=== PATIENT | male | born 1995 | race Two or more races ===

== ENCOUNTER 2021-07-26 22:12 | Emergency (ER) | payer OTHER ==
[~2021-07-26] VITALS: Ht 185.4 cm; Wt 81.8 kg
[2021-07-26] MEDS ORDERED: NS 1,000 ML IV ONE (22:35)
[2021-07-26 23:07] LABS: VENOUS BASE EXCESS -0.3 (-2.0-2.0); VENOUS HCO3 25.6 MEQ/L (23.0-27.0); VENOUS O2 SATURATION 74.8 % (60.0-80.0); VENOUS PARTIAL PRESSURE CO2 46.2 mmHg (38.0-50.0); VENOUS PARTIAL PRESSURE O2 41.2 mmHg (30.0-50.0); VENOUS PH 7.361 UNITS (7.330-7.430); VENOUS STANDARD HCO3 23.7 MEQ/L
[2021-07-26 23:08] LABS: BASO % 0.5 % (0.0-1.0); EOS # 0.2 10^3/uL (0.0-0.5); EOS % 2.6 % (0.0-3.0); HEMATOCRIT 41.5 % (42.0-52.0); LYMPH # 2.1 10^3/uL (1.5-5.0); LYMPH % 26.1 % (24.0-44.0); MEAN CORPUSCULAR HEMOGLOBIN 28.5 pg (27.0-33.0); MEAN CORPUSCULAR HGB CONC 33.7 g/dl (32.0-36.5); MEAN CORPUSCULAR VOLUME 84.3 fl (80.0-96.0); MONO # 0.5 10^3/uL (0.0-0.8); MONO % 6.7 % (2.0-8.0); NEUTROPHILS # 5.2 10^3/uL (1.5-8.5); NEUTROPHILS % 63.9 % (36.0-66.0); PLATELET COUNT, AUTOMATED 274 10^3/uL (150-450); RED BLOOD COUNT 4.92 10^6/uL (4.30-6.10); WHITE BLOOD COUNT 8.1 10^3/uL (4.0-10.0)
[2021-07-26 23:27] LABS: HEMOGLOBIN A1c 12.8 %
--- NOTE | 2021-07-26 23:27 | REPVR ---
PROCEDURE INFORMATION: Exam: CT Head Without Contrast Exam date and time: 07/26/2021 10:35 PM Age: 26 years old Clinical indication: Dizziness; Additional info: Syncope TECHNIQUE: Imaging protocol: Computed tomography of the head without contrast. Radiation optimization: All CT scans at this facility use at least one of these dose optimization techniques: automated exposure control; mA and/or kV adjustment per patient size (includes targeted exams where dose is matched to clinical indication); or iterative reconstruction. COMPARISON: No relevant prior studies available. FINDINGS: Brain: Normal. No hemorrhage. Unremarkable white matter. No mass effect. Cerebral ventricles: No ventriculomegaly. Paranasal sinuses: Moderate ethmoid sinus disease. Mastoid air cells: Visualized mastoid air cells are well aerated. Bones/joints: Unremarkable. No acute fracture. Soft tissues: Unremarkable. IMPRESSION: No acute intracranial abnormality. Electronically signed by: Jay Osborne On 07/26/2021 23:26:35 PM
[2021-07-26 23:32] LABS: OSMOLALITY SERUM 296 MOSM/KG (275-295)
[2021-07-26 23:49] LABS: ACETONE/KETONE 1.81 MG/DL (<2.81); ALBUMIN 3.6 GM/DL (3.2-5.2); ALT/SGPT 20 U/L (12-78); BILIRUBIN,DIRECT < 0.1 MG/DL (0.0-0.2); BILIRUBIN,TOTAL 0.3 MG/DL (0.2-1.0); TOTAL PROTEIN 6.6 GM/DL (6.4-8.2)
[2021-07-27 00:22] LABS: BLOOD UREA NITROGEN 23 MG/DL (7-18); CALCIUM LEVEL 8.9 MG/DL (8.5-10.1); CARBON DIOXIDE LEVEL 29 MEQ/L (21-32); CHLORIDE LEVEL 105 MEQ/L (98-107); CREATININE FOR GFR 1.07 MG/DL (0.70-1.30); GLOMERULAR FILTRATION RATE > 60.0 (>60); GLUCOSE, FASTING 175 MG/DL (70-100); POTASSIUM SERUM 3.9 MEQ/L (3.5-5.1); SODIUM LEVEL 139 MEQ/L (136-145)
[2021-07-27 01:30] VITALS: BP 135/86
--- NOTE | 2021-07-27 07:54 | ECGEPIP ---
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
== END 2021-07-27 01:35 | disposition home or self-care (01) ==
LOC: M ED 22:12
DX: R55 Syncope and collapse (principal); E10.9 Type 1 diabetes mellitus without complications; Z79.4 Long term (current) use of insulin

== ENCOUNTER 2021-09-06 22:29 | Emergency (ER) | payer OTHER ==
[~2021-09-06] VITALS: Ht 185.4 cm; Wt 85.0 kg
[2021-09-06 23:39] LABS: RSV AMPLIFICATION NEGATIVE (NEGATIVE)
--- NOTE | 2021-09-06 23:55 | REPVR ---
PROCEDURE INFORMATION: Exam: XR Chest Exam date and time: 09/06/2021 11:22 PM Age: 26 years old Clinical indication: Shortness of breath; Additional info: SOB TECHNIQUE: Imaging protocol: XR of the chest. Views: 2 views. COMPARISON: No relevant prior studies available. FINDINGS: Lungs: Unremarkable. No consolidation. Pleural spaces: Unremarkable. No pleural effusion. No pneumothorax. Heart/Mediastinum: Unremarkable. No cardiomegaly. Bones/joints: Unremarkable. IMPRESSION: Negative chest. Electronically signed by: Tristan Aguilera On 09/06/2021 23:55:26 PM
[2021-09-07 01:44] VITALS: BP 115/67
--- NOTE | 2021-09-07 11:03 | ECGEPIP ---
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
== END 2021-09-07 01:55 | disposition home or self-care (01) ==
LOC: M ED 22:29
DX: J02.9 Acute pharyngitis, unspecified (principal); E10.9 Type 1 diabetes mellitus without complications